=== PATIENT | male | born 1945 | race Hispanic/Latino ===

== ENCOUNTER → 2019-09-14 | Day surgery (SDC) | payer MEDICARE ==
[2019-09-09 14:15] LABS: BASOPHILS % 0.2 % (0.0-1.0); EOSINOPHILS # (AUTO) 0.2 (0.0-0.4); HEMATOCRIT 42.7 % (38.2-49.6); HEMOGLOBIN 13.5 g/dL (14.0-18.0); LYMPHOCYTES % 22.7 % (18.0-39.1); MEAN CORPUSCULAR HEMOGLOBIN 30.1 pg (28-32); MEAN CORPUSCULAR HGB CONC 31.6 g/dL (31-35); MEAN CORPUSCULAR VOLUME 95.1 fL (81-99); MONOCYTES # (AUTO) 0.6 (0.2-0.8); MONOCYTES % 7.2 % (4.4-11.3); NEUTROPHILS % 67.7 % (38.7-80.0); PLATELET COUNT 208 x10e3/uL (140-360); RED BLOOD COUNT 4.49 x10e6/uL (4.3-5.7); RED CELL DISTRIBUTION WIDTH 14.2 % (11.7-14.4)
[~2019-09-14] MED LIST: ASPIRIN81 MG PO; CILOSTAZOL100 MG PO; CRESTOR10 MG PO; LIDOCAINE HCL 2% LOCAL INJ 5 ML SDV VIAL INJ ONE; LISINOPRIL10 MG PO; METFORMIN HCL500 M2 PO; METFORMIN500 MG/5 M; PROPOFOL IV EMULSION 10 MG/ML 20 ML VIAL ONE; ZETIA10 MG PO
--- OUTSIDE RECORDS SUMMARY | 2019-09-14 09:33 | XMS REPORT ---
[facility] Address Unknown Phone Unavailable Care Team Providers Care Bisque Cleaner Name Role Phone Unavailable Unavailable Payers Payer Name Policy Type Policy Number Effective Date Expiration Date Problems This patient has no known problems. Allergies, Adverse Reactions, Alerts Allergy Name Allergy Type Status Severity Reaction(s) Onset Date Inactive Date Treating Clinician Comments long DA Active U 2019-03-03 00:00:00 WATERMELON DA Active SV 2014-07-01 00:00:00 Medications This patient has no known medications. Results Test Description Test Time Test Comments Text Results Atomic Results Result Comments - SP AORTOGM ABD W/RNF 2019-03-03 16:32:00 Name: RAFAL DODGE [facility] : 1945 Age/S: 73 / M [address] [facility] Unit #: [id number] Loc: [place] [address] Phys: Abdias Quiroga MD Acct: [id number] Dis Date: Status: REG [facility] PHONE #: [phone] Exam Date: 03/03/2019 1410 FAX #: [phone] Reason: PAD EXAMS: CPT CODE: [id number] SP AORTOGM ABD W/RNF [id number] Fluoro Time: 1453 DAP (Gy m2): 751 Air Kerma (mGy): 26093 REASON FOR EXAM:Peripheral vascular disease, the right is much more severe than left PROCEDURE: 1. Ultrasound-guided vascular access of the left common femoral artery 2. Ultrasound-guided vascular access of the right common femoral artery 3. Aortogram with bilateral pelvic angiogram Anesthesia: General Anesthesiologist: Dr. Hill FINDINGS: Prior to the procedu re, informed consent was obtained after risks and benefits of the procedure were explained to the patient. The patient agreed and wanted to proceed. The patient was brought to special procedures and placed supine on the table. The groins were prepped was draped in the usual fashion. All elements of maximal sterile barrier techniques were applied. Ultrasound demonstrates patency of the left common femoral artery. Images of the arteries were submitted to PACS. Under real time ultrasound guidance, a micropuncture needle was used to access the artery. A 5 Kazakh vascular sheath was inserted. An Omni Flush catheter was advanced into the distal abdominal aorta. Abdominal aortogram was performed with CO2. 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 Attempt to advance a guidewire past the stenosis was not successful. Under direct ultrasound guidance, microp uncture needle was used to access the right common femoral artery. Images of the right common femoral artery was submitted to PACS. Multiple catheter and guidewire was used to attempt to cross the right common iliac artery stenosis from the right common femoral artery approach was not successful. The procedure was terminated. The access sites were closed with Angio-Seal. MEDICATIONS: None COMPLICATIONS: None Blood loss: Less than 5 mL Fluoroscopic time: 1453 seconds Radiation dose: 751 mGy IMPRESSION: Chronic right common iliac artery occlusion. Unable to cross the stenosis. Will attempt to repeat the procedure with intravascular ultrasound. PAGE 1 Signed Report (CONTINUED) Name: DARRAFAL R [facility] : 1945 Age/S: 73 / M [address] [facility] Unit #: [id number] Loc: [place] [address] Phys: Abdias Quiroga MD Acct: [id number] Dis Date: Status: REG [facility] PHONE #: [phone] Exam Date: 03/03/2019 1410 FAX #: [phone] Reason: PAD EXAMS: CPT CODE: [id number] SP AORTOGM ABD W/RNF [id number] Fluoro Time: 1453 DAP (Gy m2): 751 Air Kerma (mGy): 72847 <Continued> at 1632 Reported and signed by: Abdias Quiroga M.D. CC: Ramos Sapp; Abdias Quiroga MD Technologist: LUIS MORROW SUPERVISOR [employer] Trnscb Date/Time: 03/03/2019 (163) [email or web address] Orig Print D/T: S: 03/03/2019 (8467) PAGE 2 Signed Report - US GUIDANCE VASC ACCESS 2019-03-03 16:32:00 Name: RAFAL DODGE [facility] : 1945 Age/S: 73 / M [address] Unit #: [id number] Loc: [place] [address] Phys: Abdias Quiroga MD Acct: [id number] Dis Date: Status: REG [facility] PHONE #: [phone] Exam Date: 03/03/2019 1410 FAX #: [phone] Reason: PAD EXAMS: CPT CODE: [id number] US GUIDANCE VASC ACCESS [id number] Fluoro Time: 1453 DAP (Gy m2): 751 Air Kerma (mGy): 04019 REASON FOR EXAM:Peripheral vascular disease, the right is much more severe than left PROCEDURE: 1. Ultrasound-guided vascular access of the left common femoral artery 2. Ultrasound-guided vascular access of the right common femoral artery 3. Aortogram with bilateral pelvic angiogram Anesthesia: General Anesthesiologist: Dr. Hill FINDINGS: Prior to the procedu re, informed consent was obtained after risks and benefits of the procedure were explained to the patient. The patient agreed and wanted to proceed. The patient was brought to special procedures and placed supine on the table. The groins were prepped was draped in the usual fashion. All elements of maximal sterile barrier techniques were applied. Ultrasound demonstrates patency of the left common femoral artery. Images of the arteries were submitted to PACS. Under real time ultrasound guidance, a micropuncture needle was used to access the artery. A 5 Kazakh vascular sheath was inserted. An Omni Flush catheter was advanced into the distal abdominal aorta. Abdominal aortogram was performed with CO2. 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 Attempt to advance a guidewire past the stenosis was not successful. Under direct ultrasound guidance, microp uncture needle was used to access the right common femoral artery. Images of the right common femoral artery was submitted to PACS. Multiple catheter and guidewire was used to attempt to cross the right common iliac artery stenosis from the right common femoral artery approach was not successful. The procedure was terminated. The access sites were closed with Angio-Seal. MEDICATIONS: None COMPLICATIONS: None Blood loss: Less than 5 mL Fluoroscopic time: 1453 seconds Radiation dose: 751 mGy IMPRESSION: Chronic right common iliac artery occlusion. Unable to cross the stenosis. Will attempt to repeat the procedure with intravascular ultrasound. PAGE 1 Signed Report (CONTINUED) Name: RAFAL DODGE [facility] : 1945 Age/S: 73 / M [address] [facility] Unit #: [id number] Loc: [place] [address] Phys: Abdias Quiroga MD Acct: [id number] Dis Date: Status: REG [facility] PHONE #: [phone] Exam Date: 03/03/2019 1410 FAX #: [phone] Reason: PAD EXAMS: CPT CODE: [id number] US GUIDANCE VASC ACCESS [id number] Fluoro Time: 1453 DAP (Gy m2): 751 Air Kerma (mGy): 98682 <Continued> at 1632 Reported and signed by: Abdias Quiroga M.D. CC: Ramos Sapp; Abdias Quiroga MD Technologist: LUIS MORROW SUPERVISOR [employer] Trnscb Date/Time: 03/03/2019 (163) Bigg Orig Print D/T: S: 03/03/2019 (9715) PAGE 2 Signed Report GLUBED 2019-03-03 10:02:00 GLUBED (test code=GLUBED) 121 mg/dL 74-106 Performed by certified trip motor operator at [facility] COMPREHENSIVE METABOLIC [id number] 17:36:00* Test Item Value Reference Range Comments SODIUM (test code=NA) 138 mmol/L 136-145 POTASSIUM (test code=K) 4.7 mmol/L 3.5-5.1 CHLORIDE (test code=CL) 106.0 mmol/L 98-107 CARBON DIOXIDE (test code=CO2) 24.0 mmol/L 21-32 ANION GAP (test code=GAP) 12.7 10-20 GLUCOSE (test code=GLU) 107 mg/dL 74-106 BLOOD UREA NITROGEN (test code=BUN) 53 mg/dL 7-18 GLOMERULAR FILTRATION RATE (test code=GFR) 33 mL/min >=60 Estimated GFR by using Modified MDRD formula.Chronic kidney disease is defined as either kidney damageor GFR <60 mL/min/1.73 m2 for >3 months. CREATININE (test code=CREAT) 2.00 mg/dL 0.7-1.3 BUN/CREATININE RATIO (test code=BUN/CREA) 26.5 10-20 TOTAL PROTEIN (test code=PROT) 7.6 gram/dL 6.4-8.2 ALBUMIN (test code=ALB) 4.0 g/dL 3.4-5.0 GLOBULIN (test code=GLOB) 3.6 gram/dL 2.7-4.2 ALBUMIN/GLOBULIN RATIO (test code=A/G) 1.1 0.75-1.50 CALCIUM (test code=CA) 9.5 mg/dL 8.5-10.1 BILIRUBIN TOTAL (test code=BILT) 0.20 mg/dL 0.0-1.0 SGOT/AST (test code=AST) 18 IUnit/L 15-37 SGPT/ALT (test code=ALT) 29 IUnit/L 12-78 ALKALINE PHOSPHATASE TOTAL (test code=ALKP) 44 IUnit/L 45-117 Note change in reference range due to change in reagent. COMPREHENSIVE METABOLIC [id number] 17:22:00* Test Item Value Reference Range Comments SODIUM (test code=NA) 138 mmol/L 136-145 POTASSIUM (test code=K) 4.7 mmol/L 3.5-5.1 CHLORIDE (test code=CL) 106.0 mmol/L 98-107 CARBON DIOXIDE (test code=CO2) mmol/L 21-32 ANION GAP (test code=GAP) 10-20 GLUCOSE (test code=GLU) mg/dL 74-106 BLOOD UREA NITROGEN (test code=BUN) mg/dL 7-18 GLOMERULAR FILTRATION RATE (test code=GFR) mL/min >=60 CREATININE (test code=CREAT) mg/dL 0.7-1.3 BUN/CREATININE RATIO (test code=BUN/CREA) 10-20 TOTAL PROTEIN (test code=PROT) gram/dL 6.4-8.2 ALBUMIN (test code=ALB) g/dL 3.4-5.0 GLOBULIN (test code=GLOB) gram/dL 2.7-4.2 ALBUMIN/GLOBULIN RATIO (test code=A/G) 0.75-1.50 CALCIUM (test code=CA) mg/dL 8.5-10.1 BILIRUBIN TOTAL (test code=BILT) mg/dL 0.0-1.0 SGOT/AST (test code=AST) IUnit/L 15-37 SGPT/ALT (test code=ALT) IUnit/L 12-78 ALKALINE PHOSPHATASE TOTAL (test code=ALKP) IUnit/L 45-117 PROTHROMBIN [id number] 16:31:00* Test Item Value Reference Range Comments PROTHROMBIN TIME PATIENT (test code=PTP) 10.8 seconds 9.0-14.0 INTERNATIONAL NORMAL RATIO (test code=INR) 0.9 0.8-1.2 The therapeutic range for oral anticoagulant therapy formost indications is an international normalized ratio (INR)of between 2.0 and 3.0. The recommended therapeutic INRrange for various clinical situations is listed below: Clinical Situation INR range Pulmonary e mbolism treatment (2.0-3.0)Venous thrombosis treatmentVenous thrombosis prophylaxis (high risk surgery)Prevention of systemic embolism from: Acute myocardial infarction Valvular heart disease Atrial fibrillation Mechanical prosthetic heart valves (2.5-3.5) THROMBOPLASTIN TIME [id number] 16:31:00* Test Item Value Reference Range Comments THROMBOPLASTIN TIME PARTIAL (test code=PTT) 38.4 seconds 25.0-36.5 CBC W/AUTO [id number] 16:22:00* Test Item Value Reference Range Comments WHITE BLOOD CELL (test code=WBC) 7.3 K/mm3 4.5-12.5 RED BLOOD CELL (test code=RBC) 4.49 mill/mm3 4.0-5.8 HEMOGLOBIN (test code=HGB) 12.8 gram/dL 13.0-17.5 HEMATOCRIT (test code=HCT) 41.5 % 42.0-52.0 MEAN CELL VOLUME (test code=MCV) 92.4 fL 80-98 MEAN CELL HGB (test code=MCH) 28.5 picogram 27.0-33.0 MEAN CELL HGB CONCETRATION (test code=MCHC) 30.8 gram/dL 33.0-36.0 RED CELL DISTRIBUTION WIDTH (test code=RDW) 14.2 % 11.6-16.2 RED CELL DISTRIBUTION WIDTH SD (test code=RDW-SD) 48.1 fL 37.0-51.0 PLATELET COUNT (test code=PLT) 216 K/mm3 150-450 MEAN PLATELET VOLUME (test code=MPV) 9.6 fL 6.7-11.0 NEUTROPHIL % (test code=NT%) 65.1 % 39.0-69.0 IMMATURE GRANULOCYTE % (test code=IG%) 0.4 % 0.0-5.0 LYMPHOCYTE % (test code=LY%) 20.8 % 25.0-55.0 MONOCYTE % (test code=MO%) 10.8 % 0.0-10.0 EOSINOPHIL % (test code=EO%) 2.5 % 0.0-5.0 BASOPHIL % (test code=BA%) 0.4 % 0.0-1.0 NUCLEATED RBC % (test code=NRBC%) 0.0 % 0-0 NEUTROPHIL # (test code=NT#) 4.76 K/mm3 1.8-7.7 IMMATURE GRANULOCYTE # (test code=IG#) 0.03 x10 3/uL 0-0.03 LYMPHOCYTE # (test code=LY#) 1.52 K/mm3 1.0-5.0 MONOCYTE # (test code=MO#) 0.79 K/mm3 0-0.8 EOSINOPHIL # (test code=EO#) 0.18 K/mm3 0.0-0.5 BASOPHIL # (test code=BA#) 0.03 K/mm3 0.0-0.2 NUCLEATED RBC # (test code=NRBC#) 0.00 K/mm3 0.0-0.1 CREATININE W ESTIMATED [id number] 10:25:00* Test Item Value Reference Range Comments BEDSIDE CREATININE (test code=CREATBED) mg/dL 0.7-1.3 GLOMERULAR FILTRATION RATE POC (test code=GFRBED) 46 >60 CREATININE W ESTIMATED [id number] 10:25:00* Test Item Value Reference Range Comments BEDSIDE CREATININE (test code=CREATBED) 1.50 mg/dL 0.7-1.3 GLOMERULAR FILTRATION RATE POC (test code=GFRBED) 49 >60 Previously reported result: 46 Edited by: GREG on 02/18/19:[id number] 1025: GFRBED previously reported as: 46 *L CREATININE W ESTIMATED [id number] 09:18:00* Test Item Value Reference Range Comments BEDSIDE CREATININE (test code=CREATBED) mg/dL 0.7-1.3 GLOMERULAR FILTRATION RATE POC (test code=GFRBED) 43 >60 CREATININE W ESTIMATED [id number] 09:18:00* Test Item Value Reference Range Comments BEDSIDE CREATININE (test code=CREATBED) 1.59 mg/dL 0.7-1.3 GLOMERULAR FILTRATION RATE POC (test code=GFRBED) 46 >60 Previously reported result: 43 Edited by: GREG on 01/30/19:[id number] 0918: GFRBED previously reported as: 43 *L
[2019-09-14 13:25] VITALS: BP 129/76
== END | disposition home or self-care (01) ==
LOC: OR 09:31
PROVIDERS: ATTEND Internal Medicine
CPT/HCPCS: 36415; 43239; 82948; 85025; 93005; J2001

== ENCOUNTER → 2020-08-30 | Day surgery (SDC) | payer MEDICARE ==
[2020-08-25 15:23] LABS: BASOPHILS % 0.3 % (0.0-1.0); EOSINOPHILS # (AUTO) 0.2 (0.0-0.4); EOSINOPHILS % 2.2 % (0.0-6.0); HEMATOCRIT 39.4 % (38.2-49.6); HEMOGLOBIN 12.3 g/dL (14.0-18.0); LYMPHOCYTES # (AUTO) 1.5 (1.0-3.2); MEAN CORPUSCULAR HGB CONC 31.2 g/dL (31-35); MEAN CORPUSCULAR VOLUME 96.1 fL (81-99); MONOCYTES # (AUTO) 0.7 (0.2-0.8); MONOCYTES % 8.9 % (4.4-11.3); NEUTROPHILS # (AUTO) 5.4 (2.1-6.9); NEUTROPHILS % 69.3 % (38.7-80.0); PLATELET COUNT 188 x10e3/uL (140-360); RED CELL DISTRIBUTION WIDTH 13.8 % (11.7-14.4)
[2020-08-30 10:15] VITALS: BP 104/64
== END | disposition home or self-care (01) ==
LOC: OR 06:58
PROVIDERS: ATTEND Internal Medicine Gastroenterology
DX: K29.00 Acute gastritis without bleeding (principal); K22.8 Other specified diseases of esophagus; K31.7 Polyp of stomach and duodenum; K29.80 Duodenitis without bleeding; K26.9 Duodenal ulcer, unspecified as acute or chronic, without hemorrhage or perforation; K20.80 Other esophagitis without bleeding; K44.9 Diaphragmatic hernia without obstruction or gangrene; E11.22 Type 2 diabetes mellitus with diabetic chronic kidney disease; I12.9 Hypertensive chronic kidney disease with stage 1 through stage 4 chronic kidney disease, or unspecified chronic kidney disease; N18.9 Chronic kidney disease, unspecified; Z01.810 Encounter for preprocedural cardiovascular examination; Z01.812 Encounter for preprocedural laboratory examination; Z20.822 Contact with and (suspected) exposure to COVID-19; Z79.84 Long term (current) use of oral hypoglycemic drugs; Z79.82 Long term (current) use of aspirin; Z86.73 Personal history of transient ischemic attack (TIA), and cerebral infarction without residual deficits; Z87.891 Personal history of nicotine dependence
CPT/HCPCS: 36415 ×2; 43239; 82948; 85025; 88305; 88312; 93005; J2001; J2704; U0002

== ENCOUNTER → 2020-12-06 | Day surgery (SDC) | payer MEDICARE ==
[2020-12-01 09:07] LABS: BASOPHILS % 0.4 % (0.0-1.0); EOSINOPHILS # (AUTO) 0.3 (0.0-0.4); EOSINOPHILS % 4.5 % (0.0-6.0); HEMATOCRIT 42.7 % (38.2-49.6); HEMOGLOBIN 13.6 g/dL (14.0-18.0); LYMPHOCYTES # (AUTO) 1.4 (1.0-3.2); LYMPHOCYTES % 18.3 % (18.0-39.1); MEAN CORPUSCULAR HEMOGLOBIN 30.3 pg (28-32); MEAN CORPUSCULAR HGB CONC 31.9 g/dL (31-35); MEAN CORPUSCULAR VOLUME 95.1 fL (81-99); MONOCYTES # (AUTO) 0.6 (0.2-0.8); MONOCYTES % 8.3 % (4.4-11.3); NEUTROPHILS # (AUTO) 5.1 (2.1-6.9); NEUTROPHILS % 68.2 % (38.7-80.0); PLATELET COUNT 188 x10e3/uL (140-360); RED BLOOD COUNT 4.49 x10e6/uL (4.3-5.7); RED CELL DISTRIBUTION WIDTH 13.1 % (11.7-14.4)
[~2020-12-06] MED LIST changes: +GLYCOPYRROLATE INJ 0.2 MG/ML VIAL ONE; -LIDOCAINE HCL 2% LOCAL INJ 5 ML SDV VIAL INJ ONE; +PANTOPRAZOLE SO40 MG PO; +POVIDONE IODINE 0.05% 0.05 % ML PO ONE; +SUCRALFATE1 GM PO
[2020-12-06 15:45] VITALS: BP 120/56
== END | disposition home or self-care (01) ==
LOC: OR 13:24
PROVIDERS: ATTEND Internal Medicine Gastroenterology
DX: Z12.11 Encounter for screening for malignant neoplasm of colon (principal); K29.60 Other gastritis without bleeding; K31.89 Other diseases of stomach and duodenum; K29.80 Duodenitis without bleeding; K44.9 Diaphragmatic hernia without obstruction or gangrene; K21.9 Gastro-esophageal reflux disease without esophagitis; K20.90 Esophagitis, unspecified without bleeding; K64.8 Other hemorrhoids; D64.9 Anemia, unspecified; I10 Essential (primary) hypertension; E11.9 Type 2 diabetes mellitus without complications; N28.9 Disorder of kidney and ureter, unspecified; Z01.810 Encounter for preprocedural cardiovascular examination; Z01.812 Encounter for preprocedural laboratory examination; Z20.822 Contact with and (suspected) exposure to COVID-19; Z79.82 Long term (current) use of aspirin; Z79.84 Long term (current) use of oral hypoglycemic drugs; Z86.73 Personal history of transient ischemic attack (TIA), and cerebral infarction without residual deficits
CPT/HCPCS: 43239; G0121; 36415; 45378; 82948; 85025; 93005; U0002